=== PATIENT | male | born 1995 | race Caucasian/White ===

== ENCOUNTER → 2020-06-13 | Outpatient (CLI) | payer OTHER ==
[2020-06-13 16:31] LABS: ALT 43 U/L (10-49); AST 26 U/L (14-35); African American GFR (CKD) 107.6 (60.0-200.0); Alkaline Phosphatase 61 U/L (41-126); BUN/Creat Ratio 11.82 Ratio (12.00-20.00); C Reactive Protein <0.4 mg/dL (0.0-0.8); Calcium 9.9 mg/dL (8.7-10.3); Carbon Dioxide 30.3 mmol/L (21.6-31.8); Chloride 102 mmol/L (96-109); Chol/HDL Ratio 4.95; Cholesterol 183 mg/dL (0-200); Creatine Kinase 75 U/L (35-257); Glucose 93 mg/dL (70-110); LDL Cholesterol,Calculated 117.4 mg/dL (0.0-131.0); Non-African American GFR(CKD) 92.8 (60.0-200.0); Sodium 140 mmol/L (135-145); Total Bilirubin 1.3 mg/dL (0.3-1.2)
[2020-06-13 18:36] LABS: Basophils # (A) 0.12 X 10*3/uL (0.00-0.10); Basophils % (A) 1.3 %; Eosinophils # (A) 0.74 X 10*3/uL (0.04-0.35); Eosinophils % (A) 8.2 %; HCT 45.8 % (39.6-50.0); HGB 15.1 g/dL (13.0-17.0); Lymphocytes # (A) 3.23 X 10*3/uL (0.90-5.00); Lymphocytes % (A) 35.9 %; MCV 91.1 fL (80.0-97.0); Mean Platelet Volume 9.9 fL (9.5-12.2); Monocytes # (A) 0.77 X 10*3/uL (0.20-1.00); Monocytes % (A) 8.6 %; Neutrophils # (A) 4.12 X 10*3/uL (1.80-7.70); Neutrophils % (A) 45.8 %; Platelet Count 305 X 10*3/uL (140-440); RBC 5.03 X 10*6/uL (4.40-5.60); RDW 11.6 % (11.5-14.5)
[2020-06-13 20:30] LABS: Erythrocyte Sedimentation Rate 3 mm/Hr (0-15)
== END | disposition home or self-care (01) ==
LOC: LABWHC1 07:13
PROVIDERS: ATTEND Internal Medicine
DX: E87.8 Other disorders of electrolyte and fluid balance, not elsewhere classified (principal); E55.9 Vitamin D deficiency, unspecified; E78.5 Hyperlipidemia, unspecified
CPT/HCPCS: 36415; 80053; 80061; 82306; 82550; 85025; 85652; 86140

== ENCOUNTER → 2021-08-22 | Outpatient (CLI) | payer OTHER ==
[2021-08-22 10:47] LABS: Basophils # (A) 0.08 X 10*3/uL (0.00-0.10); Basophils % (A) 0.9 %; Eosinophils # (A) 0.59 X 10*3/uL (0.04-0.35); Eosinophils % (A) 6.7 %; HCT 42.8 % (39.6-50.0); HGB 14.2 g/dL (13.0-17.0); Immature Grans, Automated 0.2 %; Lymphocytes # (A) 3.62 X 10*3/uL (0.90-5.00); Lymphocytes % (A) 40.9 %; MCH 29.6 pg (27.0-32.0); MCHC 33.2 g/dL (32.0-37.0); MCV 89.2 fL (80.0-97.0); Mean Platelet Volume 10.1 fL (9.5-12.2); Monocytes # (A) 0.72 X 10*3/uL (0.20-1.00); Monocytes % (A) 8.1 %; NRBC Per 100 WBC 0 /100 WBCS (0.0-0.0); Neutrophils # (A) 3.82 X 10*3/uL (1.80-7.70); Neutrophils % (A) 43.2 %; Platelet Count 308 X 10*3/uL (140-440); RDW 11.5 % (11.5-14.5); WBC 8.85 X 10*3/uL (4.50-10.00)
[2021-08-22 10:58] LABS: ALT 23 U/L (10-49); AST 22 U/L (14-35); African American GFR (CKD) 131.1 (60.0-200.0); Albumin 4.5 g/dL (3.8-4.9); Alkaline Phosphatase 63 U/L (41-126); BUN/Creat Ratio 15.82 Ratio (12.00-20.00); Blood Urea Nitrogen 14.6 mg/dL (9.0-27.0); C Reactive Protein <0.30 mg/dL (0.00-0.80); Calcium 9.5 mg/dL (8.7-10.3); Carbon Dioxide 25.6 mmol/L (20.0-27.5); Chloride 103 mmol/L (96-109); Chol/HDL Ratio 5.15 Ratio; Creatine Kinase 54 U/L (35-257); Globulin 2.5 g/dL (1.6-3.3); Glucose 93 mg/dL (70-110); Non-African American GFR(CKD) 113.1 (60.0-200.0); Potassium 3.7 mmol/L (3.5-5.5); Sodium 139 mmol/L (135-145)
[2021-08-22 11:06] LABS: Erythrocyte Sedimentation Rate 3 mm/Hr (0-15)
== END | disposition home or self-care (01) ==
LOC: LABWHC1 06:56
PROVIDERS: ATTEND Internal Medicine
DX: Z00.00 Encounter for general adult medical examination without abnormal findings (principal); D64.9 Anemia, unspecified; I10 Essential (primary) hypertension; E78.5 Hyperlipidemia, unspecified; E55.9 Vitamin D deficiency, unspecified
CPT/HCPCS: 36415; 80053; 80061; 82306; 82550; 84443; 85025; 85652; 86140

== ENCOUNTER 2022-01-24 11:08 | Emergency (ER) | payer OTHER ==
[2022-01-24 11:47] VITALS: RESP 18
--- NOTE | 2022-01-24 11:47 | ED ---
General Adult HPI - General Stated complaint: COVID TEST Time Seen by Provider: 01/24/22 11:09 Source: patient, RN notes reviewed Mode of arrival: ambulatory Limitations: no limitations - History of Present Illness Initial comments: 26-year-old male presented from for COVID-19 testing. Patient sent him to suppository and is being required by work to be tested. Patient did have some nausea vomiting mild congestion states symptoms are improving no reported fever today. Denies any chest pain no abdominal pain no other complaints. - Related Data Previous Rx's Medication Instructions Recorded Ondansetron Odt [Zofran Odt] 4 mg PO Q8HR PRN #10 tab 07/13/21 Oseltamivir [Tamiflu] 75 mg PO Q12HR 5 Days #10 cap 07/13/21 Allergies Allergy/AdvReac Type Severity Reaction Status Date / Time No Known Allergies Allergy Verified 07/13/21 17:02 Review of Systems ROS Statement: Those systems with pertinent positive or pertinent negative responses have been documented in the HPI. ROS Other: All systems not noted in ROS Statement are negative. Past Medical History Past Medical History: No Reported History History of Any Multi-Drug Resistant Organisms: None Reported Past Surgical History: No Surgical Hx Reported Past Psychological History: No Psychological Hx Reported Smoking Status: Never smoker Past Alcohol Use History: None Reported Past Drug Use History: None Reported General Exam Limitations: no limitations General appearance: alert, in no apparent distress Head exam: Present: atraumatic, normocephalic, normal inspection Eye exam: Present: normal appearance, PERRL, EOMI. Absent: scleral icterus, conjunctival injection, periorbital swelling ENT exam: Present: normal exam, mucous membranes moist Neck exam: Present: normal inspection, full ROM. Absent: tenderness, meningismus, lymphadenopathy Respiratory exam: Present: normal lung sounds bilaterally. Absent: respiratory distress, wheezes, rales, rhonchi, stridor Cardiovascular Exam: Present: regular rate, normal rhythm, normal heart sounds. Absent: systolic murmur, diastolic murmur, rubs, gallop, clicks Neurological exam: Present: alert Course Vital Signs 01/24/22 11:18 Temperature 98.6 F Pulse Rate 96 Respiratory 16 Rate Blood Pressure 131/90 O2 Sat by Pulse 99 Oximetry Medical Decision Making - Medical Decision Making Patient is COVID-19 positive vitals are stable patient in no signs of distress patient will be discharged in stable condition. Disposition Clinical Impression: COVID-19 Disposition: HOME SELF-CARE Condition: Stable Instructions (If sedation given, give patient instructions): COVID-19 (Coronavirus Disease 2019) (ED) Additional Instructions: Please return to the Emergency Department if symptoms worsen or any other con cerns. Is patient prescribed a controlled substance at d/c from ED?: No Referrals: Matti Galan MD [Primary Care Provider] - 1-2 days Time of Disposition: 12:06
[2022-01-24 12:25] VITALS: BP 133/50; PULSE 98; TEMP 98.5
== END 2022-01-24 12:25 | disposition home or self-care (01) ==
LOC: EC 11:08
DX: U07.1 COVID-19 (principal)
CPT/HCPCS: 87635; 99284

== ENCOUNTER → 2023-04-15 | Outpatient (CLI) | payer OTHER ==
[2023-04-15 10:47] LABS: Basophils # (A) 0.06 X 10*3/uL (0.00-0.10); Basophils % (A) 0.8 %; Eosinophils # (A) 0.32 X 10*3/uL (0.04-0.35); Eosinophils % (A) 4.2 %; HCT 44.1 % (39.6-50.0); HGB 15.1 g/dL (13.0-17.0); Lymphocytes # (A) 3.05 X 10*3/uL (0.90-5.00); Lymphocytes % (A) 40.5 %; MCHC 34.2 g/dL (32.0-37.0); MCV 87.5 FL (80.0-97.0); Mean Platelet Volume 9.8 FL (9.5-12.2); Monocytes # (A) 0.56 X 10*3/uL (0.20-1.00); Monocytes % (A) 7.4 %; NRBC Per 100 WBC 0 X 10*3/uL (0.00-0.01); Neutrophils # (A) 3.53 X 10*3/uL (1.80-7.70); Platelet Count 326 X 10*3/uL (140-440); RBC 5.04 X 10*6/uL (4.40-5.60); RDW 11.3 % (11.5-14.5); WBC 7.53 X 10*3/uL (4.50-10.00)
[2023-04-15 11:07] LABS: ALT 46 U/L (10-49); AST 25 U/L (14-35); Albumin 4.6 g/dL (3.8-4.9); Albumin/Globulin Ratio 1.92 Ratio (1.60-3.17); Alkaline Phosphatase 66 U/L (41-126); Blood Urea Nitrogen 13.4 mg/dL (9.0-27.0); C Reactive Protein <0.30 mg/dL (0.00-0.80); Calcium 10.1 mg/dL (8.7-10.3); Carbon Dioxide 24.3 mmol/L (21.6-31.8); Chloride 102 mmol/L (96-109); Creatine Kinase 66 U/L (35-257); Globulin 2.4 g/dL (1.6-3.3); Glucose 101 mg/dL (70-110); Magnesium 1.9 mg/dL (1.5-2.4); Phosphorus 4.3 mg/dL (2.4-5.1); Sodium 139 mmol/L (135-145); Total Bilirubin 0.8 mg/dL (0.3-1.2)
[2023-04-15 11:21] LABS: Appearance,Urine Clear (Clear); Bilirubin,Urine Negative (Negative); Blood,Urine Negative (Negative); Color,Urine Yellow (Yellow); Ketones,Urine Negative (Negative); Nitrite,Urine Negative (Negative); PH, Urine 5.5; Specific Gravity,Urine 1.026 (1.001-1.030)
[2023-04-15 12:25] LABS: Erythrocyte Sedimentation Rate 10 mm/Hr (0-15)
== END | disposition home or self-care (01) ==
LOC: LABWHC1 06:48
PROVIDERS: ATTEND Internal Medicine
DX: L03.90 Cellulitis, unspecified (principal); R60.0 Localized edema
CPT/HCPCS: 36415; 80053; 81003; 82550; 83735; 84100; 85025; 85379; 85652; 86140

== ENCOUNTER → 2023-05-05 | Outpatient (CLI) | payer OTHER ==
--- NOTE | 2023-05-05 13:26 | US ---
EXAMINATION TYPE: US venous doppler duplex LE DATE OF EXAM: 05/05/2023 1:08 PM COMPARISON: NONE CLINICAL INDICATION: Male, 27 years old with history of LLE R22.42 MASS AND LUMP, LEFT LOWER LIMB; sw elling in bilateral legs, no h/o dvt SIDE PERFORMED: Bilateral TECHNIQUE: The lower extremity deep venous system is examined utilizing real time linear array sonog asad with graded compression, doppler sonography and color-flow sonography. VESSELS IMAGED: Common Femoral Vein Deep Femoral Vein Greater Saphenous Vein * Femoral Vein Popliteal Vein Small Saphenous Vein * Proximal Calf Veins (* superficial vessels) Right Leg: Negative for DVT Left Leg: Negative for DVT IMPRESSION: Grayscale, color doppler, spectral doppler imaging performed of the deep veins of the lo wer extremities. There is normal flow, compressibility, vascular waveforms.
== END | disposition home or self-care (01) ==
LOC: RADUSWWP 12:41
PROVIDERS: ATTEND Internal Medicine
DX: R22.43 Localized swelling, mass and lump, lower limb, bilateral (principal)
CPT/HCPCS: 93970